=== PATIENT | female | born 1985 | race Caucasian/White ===

== ENCOUNTER 2017-10-27 13:45 | Inpatient (IN) | payer OTHER ==
[~2017-10-27] VITALS: Ht 149.9 cm; Wt 2.7 kg
[~2017-10-27 13:45] MED LIST: PRENATAL TABLET1 TA1
[2017-10-31] MEDS ORDERED: OXYC1TAB9 PO (09:21)
[2017-10-31] MEDS ORDERED: Ferro-Plex CAPLET PO (09:21)
[2017-10-31] MEDS ORDERED: NABUMETONE750 MG PO (09:21)
[2017-10-31] MEDS ORDERED: DOCUSATE SODIU100 MG PO (09:21)
[2017-10-31] MEDS ORDERED: Mylicon 125MG PO (09:21)
== END 2017-10-31 13:34 | DRG 766 ==
LOC: O/R 10-29 05:00 → OB/GYN 10-29 05:00
PROVIDERS: Obstetrics & Gynecology
PROC: 4A1HXCZ Monitoring of Products of Conception, Cardiac Rate, External Approach (ICD-10-PCS; 2017-10-29)
PROC: 10D00Z1 Extraction of Products of Conception, Low, Open Approach (ICD-10-PCS; principal; 2017-10-29 07:00)
DX: O44.03 Complete placenta previa NOS or without hemorrhage, third trimester (principal); Z3A.38 38 weeks gestation of pregnancy; Z37.0 Single live birth; O99.013 Anemia complicating pregnancy, third trimester; D64.89 Other specified anemias